=== PATIENT | female | born 1950 | race Asian ===

== ENCOUNTER 2018-05-28 06:58 | Day surgery (SDC) | payer MEDICARE, OTHER ==
[2018-05-28] MEDS ORDERED: LIDOCAINE 2% (SDV) 5 ML INJ (08:34)
[2018-05-28] MEDS ORDERED: PROPOFOL 60 ML (08:34)
== END 2018-05-28 13:49 | disposition home or self-care (01) ==
LOC: GIL 06:58
DX: K92.1 Melena (principal); K44.9 Diaphragmatic hernia without obstruction or gangrene; K21.9 Gastro-esophageal reflux disease without esophagitis; K64.4 Residual hemorrhoidal skin tags; K64.8 Other hemorrhoids; K57.30 Diverticulosis of large intestine without perforation or abscess without bleeding; I10 Essential (primary) hypertension; E11.9 Type 2 diabetes mellitus without complications; E03.9 Hypothyroidism, unspecified
CPT/HCPCS: 43239; 82962; 88305; 88312